=== PATIENT | male | born 1965 | race Caucasian/White ===

== ENCOUNTER 2021-05-06 15:58 | Emergency (ER) | payer SELFPAY ==
[~2021-05-06] VITALS: Ht 182.9 cm; Wt 99.8 kg
[2021-05-06 16:02] VITALS: BP 140/70
== END 2021-05-06 16:13 | disposition left against medical advice (07) ==
LOC: ER 15:58
DX: J34.0 Abscess, furuncle and carbuncle of nose (principal); Z53.21 Procedure and treatment not carried out due to patient leaving prior to being seen by health care provider

== ENCOUNTER → 2023-04-15 | Outpatient (CLI) | payer BC ==
[2023-04-15 11:10] LABS: Basophils # (auto) 0 10 ^3/uL (0-0.2); Basophils % (auto) 0.7 % (0.0-2.0); Eosinophils # (auto) 0.1 10 ^3/uL (0-0.8); Hematocrit 46.9 % (41.0-53.0); Lymphocytes % (auto) 30.9 % (10.0-50.0); Mean Corpuscular Hemoglobin 30.6 pg (28.0-32.0); Mean Corpuscular Hgb Conc. 34.1 g/dL (32.0-36.0); Mean Corpuscular Volume 89.7 fL (80.0-100.0); Monocytes # (auto) 0.4 10 ^3/uL (0-1.3); Monocytes % (auto) 6.3 % (0.0-12.0); Neutrophils % (auto) 60.1 % (37.0-80.0); Nucleated Red Blood Cells % 0.1 %; Red Blood Cells 5.23 10^6/uL (4.5-5.90); Red Cell Distribution Width 13.7 % (11.8-14.3); White Blood Cell 6.6 10^3/uL (4.4-10.8)
[2023-04-15 11:22] LABS: Alanine Aminotransferase 39 U/L (7-40); Albumin 4.9 g/dL (3.2-4.8); Alkaline Phosphatase 54 U/L (46-116); Anion Gap 6 (5-15); Aspartate Aminotransferase 19 U/L (13-40); BUN/Creatinine Ratio 14.8 (10.0-20.0); Blood Urea Nitrogen 12 mg/dL (9-23); Calcium 9.8 mg/dL (8.5-10.1); Carbon Dioxide 28 mmol/L (20-30); Chloride 105 mmol/L (98-107); Glucose 124 mg/dL (74-106); LDL Cholesterol 135 mg/dL (< 100); Potassium 3.8 mmol/L (3.5-5.1); Sodium 139 mmol/L (136-145); Triglycerides 269 mg/dL (< 150)
[2023-04-15 11:23] LABS: Bilirubin, Total 0.6 mg/dL (0.2-1.0); Cholesterol 203 mg/dL (< 200); HDL Cholesterol 30 mg/dL (40-59); Total Protein 7.5 g/dL (5.7-8.2)
== END | disposition home or self-care (01) ==
LOC: LAB 10:05
PROVIDERS: ATTEND Internal Medicine
DX: Z12.11 Encounter for screening for malignant neoplasm of colon (principal); Z00.00 Encounter for general adult medical examination without abnormal findings; I10 Essential (primary) hypertension; R07.9 Chest pain, unspecified
CPT/HCPCS: 36415; 80053; 80061; 83036; 84153; 85025; 85379